=== PATIENT | male | born 1990 | race African-American/Black ===

== ENCOUNTER 2018-08-23 11:36 | Emergency (ER) | payer MEDICAID ==
--- NOTE | 2018-08-23 12:12 | EDPHY ---
H & P Stated Complaint: cough/fever/lopes body aches Time Seen by Provider: 08/23/18 12:04 HPI/ROS: CHIEF COMPLAINT: Fever, sore throat, body aches HISTORY OF PRESENT ILLNESS: Patient is a 27-year-old healthy man who comes to the emergency department complaining of 2 days of fever, sore throat, body aches. Mild dry cough. No shortness of breath. Mild nausea but no vomiting. No diarrhea. No headache. No neck stiffness. No sick contacts. No travel out of the country. Severity: Moderate Modifying factors: None REVIEW OF SYSTEMS: Constitutional: See HPI EENTM: See HPI Respiratory: See HPI Cardiac: denies: chest pain, irregular heart rate, lightheadedness, palpitations Gastrointestinal/Abdominal: denies: abdominal pain, diarrhea, nausea, vomiting, blood streaked stools Genitourinary: denies: dysuria, frequency, hematuria, pain Musculoskeletal see HPI Skin: denies: lesions, rash, jaundice, bruising Neurological: denies: headache, numbness, paresthesia, tingling, dizziness, weakness Hematologic/Lymphatic: denies: blood clots, easy bleeding, easy bruising Immunologic/allergic: denies: HIV/AIDS, transplant 10 systems reviewed and negative except as noted EXAM: GENERAL: Well-appearing, well-nourished and in no acute distress. HEAD: Atraumatic, normocephalic. EYES: Pupils equal round and reactive to light, extraocular movements intact, sclera anicteric, conjunctiva are normal. ENT: TMs normal, nares patent, oropharynx clear without exudates. Moist mucous membranes. NECK: Normal range of motion, supple without lymphadenopathy or JVD. LUNGS: Breath sounds clear to auscultation bilaterally and equal. No wheezes rales or rhonchi. HEART: Regular rate and rhythm without murmurs, rubs or gallops. ABDOMEN: Soft, nontender, normoactive bowel sounds. No guarding, no rebound. No masses appreciated. BACK: No CVA tenderness, no spinal tenderness, step-offs or deformities EXTREMITIES: Normal range of motion, no pitting or edema. No clubbing or cyanosis. NEUROLOGICAL: Cranial nerves II through XII grossly intact. Normal speech, normal gait. 5/5 strength, normal movement in all extremities, normal sensation , normal reflexes PSYCH: Normal mood, normal affect. SKIN: Warm, dry, normal turgor, no visible rashes or lesions. Source: Patient Exam Limitations: No limitations - Personal History Current Tetanus Diphtheria and Acellular Pertussis (TDAP): Yes - Medical/Surgical History Hx Asthma: No Hx Chronic Respiratory Disease: No Hx Diabetes: No Hx Cardiac Disease: No Hx Renal Disease: No Hx Cirrhosis: No Hx Alcoholism: No Hx HIV/AIDS: No Hx Splenectomy or Spleen Trauma: No Other PMH: denies - Family History Significant Family History: No pertinent family hx - Social History Smoking Status: Never smoked Alcohol Use: Sober Constitutional: Initial Vital Signs Temperature (C) 38 C 08/23/18 11:40 Heart Rate 84 08/23/18 11:40 Respiratory Rate 18 08/23/18 11:40 Blood Pressure 122/80 H 08/23/18 11:40 O2 Sat (%) 98 08/23/18 11:40 O2 Delivery Mode Room Air Allergies/Adverse Reactions: No Known Allergies Allergy (Unverified 08/23/18 11:39) Home Medications: Medication Instructions Recorded Tylenol 08/23/18 Medical Decision Making ED Course/Re-evaluation: Patient is positive for influenza A. He has had symptoms for 3 days. We discussed rest and hydration and antipyretic use as needed. He understands and agrees with this plan. Discussed indications for returning. Differential Diagnosis: Partial list of the Differential diagnosis considered include but were not limited to; influenza, viral syndrome and although unlikely based on the history and physical exam, I also considered pneumonia, sepsis, meningitis. - Data Points Medications Given: Discontinued Medications Ibuprofen (Motrin) 600 mg PO EDNOW ONE Stop: 08/23/18 12:25 Last Admin: 08/23/18 12:28 Dose: 600 mg Departure - Departure Disposition: Home, Routine, Self-Care Clinical Impression: Influenza A Condition: Fair Instructions: Influenza (ED) Referrals: NONE *PRIMARY CARE P,. [Primary Care Provider] - As per Instructions Cathie Rick MD [Medical Doctor] - As per Instructions
[2018-08-23] MEDS ORDERED: IBUPROFEN 600 MG TAB PO ONE ×2 (12:24→13:55)
[2018-08-23 13:49] VITALS: BP 122/78
[2018-08-23] MEDS ORDERED: ACETAMINOPHEN 500 MG TAB ONE (13:55)
== END 2018-08-23 13:58 | disposition home or self-care (01) ==
DX: J10.1 Influenza due to other identified influenza virus with other respiratory manifestations (principal)